=== PATIENT | male | born 1930 | race Caucasian/White ===

== ENCOUNTER 2018-03-05 13:40 | Emergency (ER) | payer OTHER ==
[~2018-03-05] VITALS: Ht 180.3 cm; Wt 76.2 kg
[~2018-03-05 13:40] MED LIST: ASPI81CH43 PO; CELE50CA; LOVA10TA54 PO; PRO1I PO
[2018-03-05 14:03] VITALS: BP 175/76
[2018-03-05] MEDS ORDERED: HYDROcodone-ACET 10/325MG TAB PO ONE (17:00)
== END 2018-03-05 17:54 | disposition home or self-care (01) ==
LOC: ER 13:40 → EDBD 13:40 → ER 17:51
DX: S42.211A Unspecified displaced fracture of surgical neck of right humerus, initial encounter for closed fracture (principal); S09.90XA Unspecified injury of head, initial encounter; S70.01XA Contusion of right hip, initial encounter; I48.91 Unspecified atrial fibrillation; E78.5 Hyperlipidemia, unspecified; I10 Essential (primary) hypertension; Z90.49 Acquired absence of other specified parts of digestive tract; Z79.82 Long term (current) use of aspirin; Z79.899 Other long term (current) drug therapy; W01.0XXA Fall on same level from slipping, tripping and stumbling without subsequent striking against object, initial encounter; Y93.01 Activity, walking, marching and hiking; Y99.8 Other external cause status; Y92.59 Other trade areas as the place of occurrence of the external cause
CPT/HCPCS: 29105; 70450; 73030; 73502